=== PATIENT | male | born 1995 | race Caucasian/White ===

== ENCOUNTER 2020-12-28 11:29 | Emergency (ER) | payer OTHER, SELFPAY ==
[2020-12-28] VITALS (15 sets, daily range): BP systolic 131–144; BP diastolic 68–100; PULSE 62–105; RESP 13–28; TEMP 36.7–36.8; O2SAT 97–100
--- NOTE | ~2020-12-28 | XR_ITS ---
EXAMINATION: XR tibia fibula RT 2V INDICATION: Right leg pain, nail in leg TECHNIQUE: Two views of the right tibia and fibula are obtained on four radiographs. COMPARISON: None available FINDINGS: There is a nail in the soft tissues lateral to the proximal fibula. The nail enters anterio rly and penetrates to approximately mid depth in the leg. No associated osseous abnormality is identi fied. The knee and ankle appear normal. The soft tissues are otherwise unremarkable. IMPRESSION: 1. Nail in the soft tissues lateral to the proximal fibula without underlying osseous abnormality. Reviewed, dictated and finalized at location B. IMPRESSION: 1. Nail in the soft tissues lateral to the proximal fibula without underlying o sseous abnormality.
--- NOTE | 2020-12-28 11:34 | PC.NURSE ---
Patient states the nail is 3inches. Nail has about 5 inches exposed in right sorensen.
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
[2020-12-28] MEDS: fentaNYL CITRATE INJ (*CRX) 100 MCG/2 ML VIAL 50 MCG IV PUSH (12:02)
[2020-12-28] MEDS: MORPHINE SULFATE (*CRX) 4 MG/ML INJ IV PUSH (12:41)
== END 2020-12-28 13:32 | disposition home or self-care (01) ==
PROVIDERS: Emergency Provider Emergency Medicine; PCP Physician Assistant
DX: S81.841A Puncture wound with foreign body, right lower leg, initial encounter (principal); W29.4XXA Contact with nail gun, initial encounter
CPT/HCPCS: 73590; 96365; 96375; 99284; J0690; J2270; J3010

== ENCOUNTER 2025-04-14 08:58 | Emergency (ER) | payer OTHER, BC, SELFPAY ==
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
[2025-04-14 08:58] VITALS: BP 130/91; PULSE 82; RESP 18; TEMP 36.6; O2SAT 97
[2025-04-14 09:52] VITALS: BP 127/78; PULSE 81; RESP 20; O2SAT 96
[2025-04-14] MEDS: MORPHINE SULFATE (*CRX) 4 MG/ML INJ IV PUSH (10:15)
[2025-04-14] MEDS: ONDANSETRON INJ 4 MG/2 ML VIAL IV PUSH (10:15)
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
--- OUTSIDE RECORDS SUMMARY | 2025-04-14 10:16 | XMS_ITS | Clinical Summary ---
Author Organization [facility] Address [address] [place] [address] Care Team Providers Care Stacking Machine Operator Name Role Phone Rubia Vickers Primary Care Provider [phone] Allergies No known active allergies Medications No known medications Family History Medical History Relation Comments None Father None Mother Relation Status Comments Father Alive Mother Alive Social History Tobacco Use Types Packs/Day Years Used Date Smoking Tobacco: Never Smokeless Tobacco: Never Alcohol Use Standard Drinks/Week Comments Yes 0 (1 standard drink = 0.6 oz pur e alcohol) Sex and Gender Information Value Date Recorded Sex Assigned at Not on file Legal Sex Male 6:46 PM CDT Gender Identity Not on file Sexual Orientation Not on file Last Filed Vital Signs Vital Sign Reading Time Taken Comments Blood Pressure 122/82 02/10/2019 1:24 PM CDT Pulse 72 02/10/2019 1:24 PM CDT Temperature 37 C (98.6 F) 02/10/2019 12:25 PM CDT Respiratory Rate 18 02/10/2019 1:24 PM CDT Oxygen Saturation 100% 02/10/2019 1:24 PM CDT Inhaled Oxygen Concentration - - Weight 86.2 kg (190 lb) 02/10/2019 12:25 PM CDT Height 175.3 cm (5' 9) 02/10/2019 12:25 PM CDT Body Mass Index 28.06 02/10/2019 12:25 PM CDT Plan of Treatment Health Maintenance Due Date Last Done Comments Annual Physical 1996 Hepatitis C 10/12/2011 DTaP, Tdap and Td Vaccines ( 1 - Tdap) 2012 Hepatitis B Vaccines (1 of 3 - 19+ 3-dose series) 2012 HPV Vaccines (1 - 3-dose SCD M series) 2020 COVID-19 Vaccine ( - 2024-2 6 season) 2025 Influenza Adult (#1) 2025 Hepatitis A Vaccines Aged Out No long er eligible based on patient's age to complete this topic Meningococcal B Vaccine Aged Out No l onger eligible based on patient's age to complete this topic Meningococcal Vaccine Aged Out No darrian abdi eligible based on patient's age to complete this topic Pneumococcal Vaccine: Pediat rics (0 to 5 Years) and At-Risk Patients (6 to 49 Years) Aged Out No longer eligible b ased on patient's age to complete this topic RSV Immunizations Under 20 Months Aged Out No longer eligible based on patient's age to complete this topic Insurance [facility] Care Teams Stacking Machine Operator Relationship Specialty Start Date End Date Rubia Vickers PA [address] [place], [place] [id number] PCP - General 03/14/16
--- NOTE | 2025-04-14 10:33 | PC.NURSE ---
Pt refuses to attempt c collar. States I already tried with ems and I'm not trying again. CECILE Chaparro aware.
[2025-04-14 10:43] LABS: Estimated CRCL calculation 98 ml/min; Estimated Glomerular Filt Rate > 60
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
[2025-04-14] MEDS: HYDROcodone/acetaminophen (*CRX) 5-325 MG TABLET 1 TAB PO (12:35)
[2025-04-14] MEDS: KETOROLAC 30 MG/ML VIAL (*BKC) IV PUSH (12:36)
[2025-04-14 13:17] VITALS: BP 136/104; PULSE 77; RESP 14; TEMP 36.8; O2SAT 98
--- NOTE | 2025-04-14 13:27 | PC.NURSE ---
1200 pt refused rigid collar per report [id number]
== END 2025-04-14 13:17 | disposition home or self-care (01) ==
PROVIDERS: Emergency Provider Physician Assistant; PCP Physician Assistant
DX: S20.212A Contusion of left front wall of thorax, initial encounter (principal); S46.912A Strain of unspecified muscle, fascia and tendon at shoulder and upper arm level, left arm, initial encounter; S76.012A Strain of muscle, fascia and tendon of left hip, initial encounter; V43.52XA Car driver injured in collision with other type car in traffic accident, initial encounter
CPT/HCPCS: 70450; 71260; 72125; 73564; 74177; 96374; 96375; 99284; A9270; J1885; J2270; J2405; Q9967